=== PATIENT | female | born 1990 | race Caucasian/White ===

== ENCOUNTER → 2018-09-21 11:28 | Outpatient (CLI) | payer BC, SELFPAY ==
[2018-09-21 11:39] LABS: Adenovirus F 40/41, stool Not Detected (NotDetected); Astrovirus Not Detected (NotDetected); Campylobacter Not Detected (NotDetected); Clostridium Difficile A/B, PCR Not Detected (NotDetected); Cryptosporidium Not Detected (NotDetected); Entamoeba histolytica Not Detected (NotDetected); Enteroaggregative E coli Not Detected (NotDetected); Enteropathogenic E coli Not Detected (NotDetected); Enterotoxigenic E coli Not Detected (NotDetected); Giardia lamblia Not Detected (NotDetected); Norovirus Not Detected (NotDetected); Plesimonas Shigalloides, PCR Not Detected (NotDetected); Rotavirus A Not Detected (NotDetected); Salmonella, PCR Not Detected (NotDetected); Sapovirus Not Detected (NotDetected); Shiga-like toxin E coli Not Detected (NotDetected); Shigella Enterovasive E coli Not Detected (NotDetected); Vibrio Cholerae Not Detected (NotDetected); Vibrio, PCR Not Detected (NotDetected); Yersinia Entercolitica, PCR Not Detected (NotDetected)
[2018-09-21 17:05] LABS: Cyclospora Cayetanesis Detected (NotDetected)
== END ==
PROVIDERS: Visit Provider Emergency Medicine
DX: K52.9 Noninfective gastroenteritis and colitis, unspecified (principal); A07.4 Cyclosporiasis
CPT/HCPCS: 87177; 87507

== ENCOUNTER → 2019-05-13 17:09 | Outpatient (CLI) | payer BC, SELFPAY ==
[2019-05-13 18:49] LABS: Anion Gap 12.1 mEq/L (5-15); Blood Urea Nitrogen 16 mg/dl (7-17); Calcium 9.9 mg/dl (8.4-10.2); Carbon Dioxide 27 mmol/L (22.0-30.0); Chloride 104 mmol/L (98-107); Estimated Glomerular Filt Rate 98 ml/min (>60); GFR (African American) 119 ML/MIN (>60); Glucose 79 mg/dl (74-100); Potassium 4.1 mmoL/L (3.5-5.1); Sodium 139 mmol/L (136-145)
[2019-05-13 19:09] LABS: HCG,Quantitative < 2 mIU/ml (0-5.42)
== END ==
PROVIDERS: Visit Provider Internal Medicine Adolescent Medicine
DX: R10.9 Unspecified abdominal pain (principal)
CPT/HCPCS: 36415; 80048; 84702

== ENCOUNTER → 2019-05-27 08:59 | Outpatient (CLI) | payer BC, SELFPAY ==
--- NOTE | 2019-05-27 09:04 | CT_ITS ---
PROCEDURE: CT ABDOMEN PELVIS WO/W CON CLINICAL INDICATION: LT FLANK PAIN Left flank pain COMPARISON: No exams were available for comparison TECHNIQUE: IV Contrast: 75ML OPTIRAY 350 Oral Contrast none Axial images obtained with sagittal and coronal reformats. All CT scans at the facility use one or more dose reduction, viz: automated exposure control, ma/kV adjustment per patient size (including targeted exams where dose is matched to indication, i.e. head), or iterative reconstruction technique. FINDINGS: LOWER THORAX: Lung bases are clear. ABDOMEN & PELVIS: The liver, gallbladder, spleen, adrenal glands, and pancreas have an unremarkable appearance. There are bilateral renal calculi present with a 3 mm nonobstructing stone in the lower pole of the right kidney. There are multiple left renal calculi measuring up to 5 mm in the mid polar region of the left kidney. These are best demonstrated on the unenhanced images. The no ureteral calculi are evident. There is minimal ectasia of the right renal collecting system and ureter but no obvious ureteral calculus. No evidence of appendicitis, intestinal obstruction, or free air. Air density is present in the vagina consistent with a tampon. There is a small amount fluid in the cul-de-sac. No acute bony anomalies. Urinary bladder has an unremarkable appearance. There is mild prominence of the low-density changes of the endometrium which is nonspecific. The uterus is retroverted. IMPRESSION: 1. Nonobstructing bilateral renal calculi measuring up to 5 mm on the left and 3 mm on the right. 2. Mild ectasia of the right renal collecting system and ureter nonspecific. No ureteral calculus apparent. 3. Small amount fluid in the cul-de-sac Dictated by: Isidro Andrade MD 05/28/2019 07:23 Electronically signed by Isidro Andrade MD in [place] 05/28/2019 07:23
== END ==
PROVIDERS: PCP Internal Medicine Adolescent Medicine; Visit Provider Internal Medicine Adolescent Medicine
DX: R10.9 Unspecified abdominal pain (principal)
CPT/HCPCS: 74178

== ENCOUNTER → 2020-10-11 13:56 | Outpatient (CLI) | payer BC, SELFPAY | PROVIDERS: Visit Provider Internal Medicine Adolescent Medicine | DX: R10.2 Pelvic and perineal pain (principal) | CPT/HCPCS: 87086 ==

== ENCOUNTER → 2022-01-16 10:47 | Outpatient (CLI) | payer OTHER, SELFPAY ==
--- NOTE | 2022-01-16 10:47 | US_ITS ---
FINAL REPORT CLINICAL HISTORY: pelvic pain FINDINGS: Transvaginal sonographic images of the pelvis were obtained. The uterus measures 9 x 6.2 x 5 cm. The endometrium measures up to 16 mm which is at the upper limits of normal. No uterine mass is identified. The right ovary measures 3.6 cm in length and left ovary measures 2.8 cm in length. Normal blood flow seen to the ovaries. There is a small amount of free fluid, nonspecific. IMPRESSION: Endometrium measures up to 16 mm which is at the upper limits of normal. Reviewed, Interpreted and Dictated by Wilton Junior III, MD Transcribed by Akosua Awad Authenticated and [facility]
== END ==
PROVIDERS: PCP Internal Medicine Adolescent Medicine; Visit Provider Nurse Practitioner Obstetrics & Gynecology
DX: R10.2 Pelvic and perineal pain (principal)
CPT/HCPCS: 76830

== ENCOUNTER → 2022-04-03 15:43 | Outpatient (CLI) | payer OTHER, SELFPAY ==
--- NOTE | 2022-04-03 15:54 | XR_ITS ---
FINAL REPORT CLINICAL HISTORY: LOW BACK PAIN FINDINGS: A single supine view of the abdomen was obtained. There is no prior for comparison. The bowel gas pattern is unremarkable. There is moderate stool. There are several left renal stones, largest measuring 4 mm. Osseous structures are within normal limits. IMPRESSION: Left renal stones. Reviewed, Interpreted and Dictated by Shira Schaefer MD Transcribed by Vickie Tracy Authenticated and [facility]
--- NOTE | 2022-04-03 15:54 | XR_ITS ---
FINAL REPORT CLINICAL HISTORY: LOW BACK PAIN COMPARISON: None FINDINGS: AP, lateral, and oblique views of the lumbar spine were obtained. There is no acute fracture or acute malalignment. Vertebral body height is preserved. No acute paraspinal abnormality is identified. IMPRESSION: No acute osseous abnormalities lumbar spine. Reviewed, Interpreted and Dictated by Shira Schaefer MD Transcribed by Vickie Tracy Authenticated and [facility]
--- NOTE | 2022-04-03 15:54 | XR_ITS ---
FINAL REPORT CLINICAL HISTORY: LOW BACK PAIN COMPARISON: none FINDINGS: SACROILIAC JOINTS SERIES Three views were obtained. There is no acute fracture or dislocation. There is mild degenerative disease in the bilateral SI joints. No erosions. No ankylosis. IMPRESSION: No acute process. Reviewed, Interpreted and Dictated by Shira Schaefer MD Transcribed by Vickie Tracy Authenticated and [facility]
== END ==
PROVIDERS: PCP Internal Medicine Adolescent Medicine; Visit Provider Internal Medicine Adolescent Medicine
DX: M54.50 Low back pain, unspecified (principal); R20.0 Anesthesia of skin; Z87.442 Personal history of urinary calculi
CPT/HCPCS: 72110; 72202; 74018

== ENCOUNTER → 2022-04-12 08:01 | Outpatient (CLI) | payer OTHER, SELFPAY ==
--- NOTE | 2022-04-12 08:06 | MR_ITS ---
FINAL REPORT TECHNIQUE: Multiplanar MR without contrast CLINICAL HISTORY: LOW BACK and pelvic pain. symptoms 6 months. bilateral anterior leg pain. bilateral groin pain worse on left side. FINDINGS: Sagittal images show normal vertebral height. Alignment is normal. Marrow signal pattern is unremarkable. L1-2: Unremarkable L2-3: Unremarkable L3-4: Unremarkable L4-5: Unremarkable L5-S1: Unremarkable IMPRESSION: Unremarkable exam Reviewed, Interpreted and Dictated by Lynette Wilson MD Transcribed by Taisha Griffiths Authenticated and [facility]
== END ==
PROVIDERS: PCP Internal Medicine Adolescent Medicine; Visit Provider Internal Medicine Adolescent Medicine
DX: M54.50 Low back pain, unspecified (principal); R20.0 Anesthesia of skin
CPT/HCPCS: 72148; 76376

== ENCOUNTER → 2022-05-03 13:59 | Outpatient (CLI) | payer OTHER, SELFPAY ==
--- NOTE | 2022-05-03 | CA_ITS ---
FINAL REPORT CLINICAL HISTORY: Patient states she had pelvic pain that began 6 months ago that began radiating down left leg. This leg pain began 1 month ago and has progressively gotten worse. She states that a splotchy under the skin rash began 1 week ago at the mid medial calf of LLE. Denies trauma. Denies . Currently on no medications. FINDINGS: DUPLEX VENOUS SONOGRAPHY OF THE LEFT LOWER EXTREMITY Multiple transverse and longitudinal scans were performed of the femoropopliteal deep venous system, with augmentation and compression maneuvers. Normal phasic flow was noted in the visualized deep venous system. No intraluminal increased echogenicity is noted to suggest thrombus. There is normal compression and augmentation of the venous structures. No abnormal venous collaterals are seen. IMPRESSION: No evidence of deep venous thrombosis of the left lower extremity. Reviewed, Interpreted and Dictated by Shira Schaefer MD Transcribed by Taisha Griffiths Authenticated and . [facility]
== END ==
PROVIDERS: PCP Internal Medicine Adolescent Medicine; Visit Provider Nurse Practitioner Family
DX: M79.605 Pain in left leg (principal); L81.9 Disorder of pigmentation, unspecified
CPT/HCPCS: 93971

== ENCOUNTER → 2022-05-27 10:17 | Outpatient (CLI) | payer OTHER, SELFPAY ==
--- NOTE | 2022-05-27 10:20 | CT_ITS ---
FINAL REPORT TECHNIQUE: Axial images were obtained from the lung bases through the pubic symphysis before and after the administration of intravenous contrast. This study was performed with techniques to keep radiation doses as low as reasonably achievable (ALARA). Individualized dose reduction techniques using automated exposure control or adjustment of mA and/or kV according to the patient's size were employed. CLINICAL HISTORY: LT FLANK PAIN,PELVIC PAIN FINDINGS: Precontrast images demonstrate a nonobstructing left renal stones with the largest measuring up to 5 mm. There is a small, 3 mm, nonobstructing lower pole right renal stone. There is mild right hydroureter. There are no ureteral stones. Abdomen: The lung bases are clear. The liver parenchyma is homogeneous. The gallbladder is present. The spleen, pancreas and adrenal glands are unremarkable. The kidneys enhance normally. There is no mass or adenopathy identified. There is no evidence of bowel obstruction. Pelvis: The appendix is normal. Mild bladder wall thickening is likely inflammatory. A small amount of free fluid could be physiologic or reactive. There are small bilateral ovarian cysts. IMPRESSION: Bilateral nephrolithiasis. Mild right hydroureter without ureteral stone. Reviewed, Interpreted and Dictated by Wilton Junior III, MD Transcribed by Jan Hampton Authenticated and [facility]
== END ==
PROVIDERS: PCP Internal Medicine Adolescent Medicine; Visit Provider Internal Medicine Adolescent Medicine
DX: R10.9 Unspecified abdominal pain (principal); R10.2 Pelvic and perineal pain
CPT/HCPCS: 74178; Q9967

== ENCOUNTER → 2022-07-17 11:05 | Outpatient (CLI) | payer OTHER, SELFPAY ==
--- NOTE | 2022-07-17 11:09 | XR_ITS ---
FINAL REPORT CLINICAL HISTORY: soa & chest pain FINDINGS: TWO-VIEW CHEST The heart size is normal. The mediastinum is normal. The lungs are clear. There is no pneumothorax. IMPRESSION: No acute cardiopulmonary process. Reviewed, Interpreted and Dictated by Dominic Chun MD Transcribed by Taisha Griffiths Authenticated and . [facility]
== END ==
PROVIDERS: PCP Internal Medicine Adolescent Medicine; Visit Provider Internal Medicine Adolescent Medicine
DX: R07.89 Other chest pain (principal)
CPT/HCPCS: 71046

== ENCOUNTER → 2022-12-05 10:15 | Outpatient (CLI) | payer OTHER, SELFPAY ==
--- NOTE | 2022-12-05 10:20 | XR_ITS ---
FINAL REPORT CLINICAL HISTORY: MIDLINE THORACIC BACK PAIN. pain for 9 months FINDINGS: THORACIC SPINE Two views demonstrate no acute fracture. The disc spaces are well preserved. There is mild anterior osteophyte formation throughout the thoracic spine. There is no malalignment. IMPRESSION: No acute process. Reviewed, Interpreted and Dictated by Dominic Chun MD Transcribed by Taisha Griffiths Authenticated and . [facility]
== END ==
LOC: RAD 10:16
PROVIDERS: PCP Internal Medicine Adolescent Medicine; Visit Provider Internal Medicine Adolescent Medicine
DX: M54.6 Pain in thoracic spine (principal)
CPT/HCPCS: 72072

== ENCOUNTER 2023-04-03 08:30 | Outpatient (RCR) | payer OTHER, SELFPAY ==
--- NOTE | 2023-03-18 11:47 | HMH.PTOPEV ---
PT Outpatient Evaluation Rehab PT Outpatient Evaluation Start: 03/18/23 11:16 Freq: Status: Active Protocol: Document 03/18/23 11:30 ALEXSANDER (Rec: 03/18/23 11:47 ALEXSANDER [id number]) E-signed By Rafael Huston, PT Outpatient Therapy Subjective History Subjective History Patient is a 33 year old female presenting to outpatient PT with reports of sub-acute LBP starting approx 4 months ago. Patient also reports mid/lower thoracic spine pain. Symptoms of insidious onset. Special tests indicate L upslip of the innominant. Most recent imaging indicates mild anterior osteophytes of the thoracic spine. Palpation indicates slight levoscoliosis . Comorbidities include hx of interstitial cystitis, which she is seeing a pelvic wall and floor tiler to address. New diagnosis of cancer in past 12 No months? Chief Complaint Pain Symptom Type Shooting Symptoms Relieved By Rest/Positioning,Heat, Prescription Meds Symptoms Aggravated By Sitting,Bending/Stooping, Physical Activity,Lifting Prior Functional Limitations None Current Functional Limitations Lifting,Recreation Activity, Bending/Stooping Symptom Description Intermittent Level of pain today (0-10) 2 Pain scale - at its best (0-10) 0 Pain scale - at its worst (0-10) 4 Lumbopelvic Eval Posture Thoracic Spine Posture Standing Position Increased Kyphosis Lumbar Spine Posture Standing Position Decreased Lordosis Assistive device Assistive Devices None / NA Palapation tenderness left paraspinal tenderness Yes: T9-L5 QL mm 2/4 Lumbar/Sacral Palpation Findings Tenderness Accessory Movement L2 left L3 left Range of Motion Lumbar Spine Active Flexion Range of WNL Motion (degrees) Lumbar Spine Active Extension Range of 12 Motion (degrees) Left Lumbar Spine Lateral Flexion Active 16 Range of Motion (degrees) Right Lumbar Spine Lateral Flexion WNL Active Range of Motion (degrees) Lumbar Spine ROM Limitations Soft Tissue Tightness Manual Muscle Test Bilateral Knee Extension Strength Grade 5 Normal Knee Flexion Strength Grade 5 Normal Hip Flexion Strength Grade 5 Normal Extensor Hallucis Longus Strength Grade 5 Normal Ankle Dorsiflexion Strength Grade 5 Normal Gastronemius/Soleus Strength Grade 5 Normal Special Tests Hip Jose Daniel (EMANUEL) Test Positive Left,Positive Right Hip Oni Test Positive Left,Positive Right Hip Piriformis Test Positive Left,Positive Right Sciatic Nerve Tension Test Negative Left,Negative Right [place] Test Positive Sacroiliac Joint Compression Test Positive Left Sacroiliac Joint Distraction Test Positive Left Lumbar Long [place] Distraction Test/Manual Positive Traction Oswestry Index Section 1 Pain Intensity The pain comes and goes and is moderate Section 2 Personal Care (Washing,Dresing) change my way of washing or dressing in order to avoid pain Section 3 Lifting I can lift heavy weights, but it gives me extra pain Section 4 Walking I have no pain when walking Section 5 Sitting Pain prevents me from sitting for more than 1/2 hour Section 6 Standing I can stand as long as I want without pain Section 7 Sleeping I get no pain in bed Section 8 Social Life My social life is normal and gives me no extra pain Section 9 Traveling I get no pain when traveling Section 10 Changing Degreee of Pain My pain seems to be getting better, but improvement is slow Score and Risk Level Oswestry Sc 8 Oswestry Risk Level Mild Disability Outpatient Therapy Assessment Impairments Problems/Impairmments Palpation Tenderness,Impaired Range of Motion,Impaired Strength,Impaired Sitting, Impaired Lifting,Impaired Bending,Impaired Recreational Activities,Impaired Work Activities,Subjective C/O Pain Prognosis Rehab Potential Good Clinical Impression Consistent with Diagnosis Yes Short Term Goals Number of Weeks 2 Decrease Subjective C/O Pain Yes: 05/24 at worst Patient to be Ind w/ HEP Yes Detention Goals Number of Weeks 4-6 Decreased Palpation Tenderness Yes: 1/ Increase Range of Motion Yes: WNL all planes Increase Strength Yes: 5/5 bridge, plank, side plank 30 Increase Ability to Sit Yes: 1 hr without difficulty Improve Ability to Bend Yes Improve Oswestry Score Yes: -5 pts Decrease Subjective C/O Pain Yes: 03/26 at worst Outpatient Therapy Plan of Care Treatment Plan May Include Therapeutic Exercise Including Home Yes Exercise Program Manual Therapy Techniques Yes Neuromuscular Re-education Yes Therapeutic Activities to Return to Yes Previous Functional/Work Level Gait Training Yes ADL/Self Care Education Yes Mechanical Traction Yes Dry Needling Yes Thermal Modalities Yes Electrical Stimulation Yes Ultrasound/Phonophoresis Yes Iontophoresis Yes Massage Yes Eval/Re-Eval Yes Frequency Times per week 2 Duration Number of Weeks 4-6 Addendums This patient is a candidate for social No or vocational rehab? Patient/Guardian verbally acknowledges Yes understanding of treatment program and consents to further treatment? Patient/Guardian verbally acknowledges Yes understanding of diagnosis, prognosis and goals for treatment? Eval Complexity PT Charges 07522 - Moderate Complexity Shoulder/Elbow Eval Shoulder Objective Measurements Elbow Objective Measurements PHYSICIAN CERTIFICATION: I certify the specified therapy services for Valerie Sisi [place] are required, authorized, and reviewed every 30 days.
== END 2023-04-03 09:30 | disposition home or self-care (01) ==
LOC: PT 08:30
PROVIDERS: PCP Internal Medicine Adolescent Medicine; Visit Provider Nurse Practitioner Family
DX: M54.89 Other dorsalgia (principal)
CPT/HCPCS: 20561; 97010; 97014; 97110; 97163; 97535; G0283

== ENCOUNTER 2023-06-11 10:25 | Outpatient (CLI) | payer OTHER, SELFPAY ==
--- NOTE | 2023-06-11 10:36 | XR_ITS ---
FINAL REPORT CLINICAL HISTORY: CERVICALGIA FINDINGS: SPINE CERVICAL COMPLETE/FLEXION & EXT Seven views demonstrate no acute fracture. The disc spaces are well preserved. There is no malalignment. There is no evidence of instability with flexion and extension maneuvers. IMPRESSION: No acute process. Reviewed, Interpreted and Dictated by Dominic Chun MD Transcribed by Taisha Griffiths Authenticated and [facility]
== END 2023-06-11 23:59 ==
LOC: RAD 10:26
PROVIDERS: PCP Internal Medicine Adolescent Medicine; Visit Provider Internal Medicine Adolescent Medicine
DX: M54.2 Cervicalgia (principal)
CPT/HCPCS: 72052

== ENCOUNTER 2023-06-16 09:45 | Outpatient (CLI) | payer OTHER, SELFPAY | END 2023-06-16 23:59 | LOC: RAD 09:46 | PROVIDERS: PCP Internal Medicine Adolescent Medicine; Visit Provider Internal Medicine Adolescent Medicine | DX: M54.2 Cervicalgia (principal) ==

== ENCOUNTER 2023-06-19 08:53 | Outpatient (CLI) | payer OTHER, SELFPAY ==
--- NOTE | 2023-06-19 08:57 | FL_ITS ---
FINAL REPORT CLINICAL HISTORY: cervicalgia, pharyngeal dysphagia FT 1:33 DAP 107.78 FINDINGS: MODIFIED BARIUM SWALLOW History: Dysphagia. FINDINGS: Fluoroscopy was provided for the speech pathologist to evaluate the swallowing mechanism. The patient was given several different consistencies of barium while the swallow was visualized fluoroscopically. The report of the speech pathologist should be consulted prior to making dietary decisions. Fluoro time: 1 minute 33 seconds DAP: 107.78 uGym2. IMPRESSION: Modified barium swallow under fluoroscopic guidance. Please see the report of the speech pathologist for detail. Films reviewed , interpreted and dictated by Dr. Junior. Transcribed by Agustin Carrillo PA-C. Reviewed, Interpreted and Dictated by Wilton Junior III, MD Transcribed by DEBBIE Ayala Authenticated and [facility]
--- NOTE | 2023-06-19 08:58 | US_ITS ---
FINAL REPORT TECHNIQUE: Real-time grayscale and color ultrasound of the soft tissues of the neck was performed. CLINICAL HISTORY: CERVICALGIA,PHARYNGEAL DYSPHAGIA COMPARISON: None FINDINGS: Ultrasound images of the area of concern were obtained. Color Doppler images were submitted. There are several mildly enlarged bilateral neck nodes favored to be reactive. IMPRESSION: Enlarged bilateral lymph nodes favored to be reactive. Reviewed, Interpreted and Dictated by Wilton Junior III, MD Transcribed by Vickie Tracy Authenticated and . [facility]
--- NOTE | 2023-06-20 08:31 | HMH.SLMBS2 ---
Speech & Language Evaluation Speech/Language Mod Barium Swallow Start: 06/20/23 08:25 Freq: once Status: Complete Protocol: Document 06/19/23 12:25 ALEXCHARLENE (Rec: 06/20/23 08:31 [facility] [id number]) General Information General Current Food Consistancy Regular,Thin Liquids Dentition Good Dentition Oxygen Status Room Air Patient Orientation Person,Place,Time,Situation Ability to Follow Directions Excellent Communication Ability No Impairment MBS Recommendations Diet Dietary Recommendations Regular,Thin Liquids Treatment/Strategies Strategy/Precaution Recommend Sitting Upright (90 deg), Double Swallow,Small Bites and Sips,Alternate Liquids/Solids Referrals/Other Recommended Referrals GI Consult,ENT Consult Other Recommendations C/o globus sensation, neck pain, states swallow does not feel natural Mod Barium Swallow Impressions Summary and Impressions Oral Phase Impression No Impairment (WFL) Oral Phase Summary Oral preparatory and oral transit phase of the swallow are both WFL. Pharyngeal Phase Impression No Impairment (WFL) Pharyngeal Phase Summary Minimal to no impairment of the pharyngeal phase of the swallow. Only notable concern was delayed swallow and occassional multiple swallow attempts on solid bolus 2' being dry per pt report; pt complains of swallow not feeling natural and that she has to force the swallow, no aspiration or penetration was noted throughout the eval with no notable residuals across the pharynx. Speech/Language MBS Assessment/Goals/Plan Assessment Date of Evaluation: 06/19/23 Evaluation Type Initial Certification Assessment/Problems dysphagia per MD order Does Patient Qualify for Service No Qualify/Failure Comment Based on instrumental assessment, oropharyngeal phases of the swallow are WFL. It is recommended pt pursue ENT and GI consults to address neck pain and globus sensation further. No further skilled speech therapy services are warranted at this time. Recommendations PHYSICIAN CERTIFICATION: The specified therapy services are required, authorized, and reviewed every 30 days. Diet Recommendations Normal Liquid Type Recommendations Normal/Thin SL Swallow Guidelines Standard Aspiration Prec., Reflux precautions Dysphagia Swallow Precautions/Strategies Sitting Upright (90 deg), Double Swallow,Small Bites and Sips,Alternate Liquids/Solids Plan Pt/Guardian verbally ack understanding Yes of dx/prognosis/goals G -code Required No Education Instructions provided Discussed MBSS results, diet recommendations, compensatory strategies, and aspiration precautions, as well as reviewed consult referrals. Pt expressed understanding. Pt/Caregiver able to recall information Able to recall/restate Reinforcement needed No Mod Barium Swallow Setup Exam Setup Radiologist Wilton Junior Level of Consciousness Awake,Alert,Appropriate, Follows Commands Mod Barium Swallow-Lat View Textures Lateral View Food Presentation Thin Liquid via Cup,Thin Liquid via Straw,Pureed Food- Thin,Mech. Soft Food- Regular, Barium Tablet,Regular Food, Pudding Oral Phase Labial Closure No Impairment (WFL) Bolus Formation Pooling L/R No Impairment (WFL) Bolus Formation under Tongue No Impairment (WFL) Bolus Formation Scattered Loss No Impairment (WFL) Mastication Rotary Chew No Impairment (WFL) Mastication Munching No Impairment (WFL) Mastication Lateralization No Impairment (WFL) Lingual Movement No Impairment (WFL) Residue Clearing No Impairment (WFL) Pharyngeal Phase A/P Lingual Propulsion Spills No Impairment (WFL) Swallow Response Delay Minimal Impairment Base of Tongue No Impairment (WFL) Epiglottic Coverage No Impairment (WFL) Laryngeal Elevation No Impairment (WFL) Vallecular Retention Clearing No Impairment (WFL) Pharyn. Wall Residue Clearing No Impairment (WFL) Piriform Sinus Retention No Impairment (WFL) Aspiration? No Silent aspiration? No Mod Barium Swallow-AP View Performed Mod Barium Swallow A/P View Test Not Applicable/Performed PHYSICIAN CERTIFICATION: I certify the specified therapy services for Valerie Frausto are required, authorized, and reviewed every 30 days.
== END 2023-06-19 23:59 ==
LOC: RAD 08:54
PROVIDERS: PCP Internal Medicine Adolescent Medicine; Visit Provider Internal Medicine Adolescent Medicine
DX: M54.2 Cervicalgia (principal); R13.13 Dysphagia, pharyngeal phase
CPT/HCPCS: 70371; 76536; 92611

== ENCOUNTER 2023-12-16 13:25 | Outpatient (CLI) | payer OTHER, SELFPAY ==
[2023-12-16 13:35] LABS: Microscopic, Urine URINE MICROSCOPIC (MICROSCOPIC)
[2023-12-16 13:57] LABS: Appearance,Urine CLOUDY (Clear); Bilirubin,Urine Negative (Negative); Blood, Urine 1+ (Negative); Color,Urine YELLOW (Yellow); Glucose,Urine (UA) Negative (Negative); Ketones,Urine Negative (Negative); Leukocyte Esterase,Urine 2+ (Negative); Nitrate,Urine POSITIVE (Negative); PH,Urine 7.5 (5.0-8.5); Protein,Urine TRACE (Negative); Urobilinogen,Urine 0.2 EU/dl (0.2)
[2023-12-16 14:17] LABS: WBC,Urine 20-50 #/hpf (0-3)
[2023-12-16 14:18] LABS: Bacteria,Urine 3+ /lpf; RBC,Urine Occasional #/hpf (0-3)
== END 2023-12-16 23:59 | disposition home or self-care (01) ==
LOC: LAB 13:28
PROVIDERS: PCP Internal Medicine Adolescent Medicine; Visit Provider Nurse Practitioner Family
DX: R30.0 Dysuria (principal)
CPT/HCPCS: 81001; 87086; 87088; 87186